=== PATIENT | male | born 1995 | race African-American/Black ===

== ENCOUNTER 2018-12-04 23:45 | Emergency (ER) | payer OTHER ==
--- NOTE | 2018-12-05 00:57 | ED ---
HPI Febrile Illness - HPI Summary HPI Summary: 23 yo male presents with flu like illness. He tells me that last night he developed feeling feverish, headache, body aches, and fatigue. He took ibuprofen and felt better. Symptoms persisted into today. He took ibuprofen with slight relief, but has felt tired all day and wants to sleep. He is eating and drinking well. Denies sinus symptoms, sore throat, cough, SOB, chest pain, abdominal pain, n/v, dysuria. - History of Current Complaint Chief Complaint: EDGeneral Time Seen by Provider: 12/05/18 00:56 Hx Obtained From: Patient Initial Severity: Mild Current Severity: Mild Pain Intensity: 4 Pain Scale Used: 0-10 Numeric - Allergy/Home Medications Allergies/Adverse Reactions: Allergies Allergy/AdvReac Type Severity Reaction Status Date / Time No Known Allergies Allergy Verified 12/04/18 23:50 PMH/Surg Hx/FS Hx/Imm Hx Endocrine/Hematology History: Denies: Hx Diabetes Cardiovascular History: Denies: Hx Hypotension, Hx Hypertension Respiratory History: Denies: Hx Asthma, Hx Chronic Obstructive Pulmonary Disease (COPD) Neurological History: Denies: Hx CVA - Surgical History Surgical History: None - Immunization History Immunizations Up to Date: Yes Infectious Disease History: No Infectious Disease History: Denies: Traveled Outside the [place] in Last 30 Days - Family History Known Family History: Positive: Non-Contributory - Social History Occupation: Student Lives: Dormitory/Roommates Alcohol Use: Occasionally Substance Use Type: Reports: None Smoking Status (MU): Never Smoked Tobacco Review of Systems Positive: Fever, Fatigue, Other - Body aches Eyes: Negative ENT: Negative Cardiovascular: Negative Respiratory: Negative Gastrointestinal: Negative Neurological: Negative Psychological: Normal All Other Systems Reviewed And Are Negative: No Physical Exam - Summary Physical Exam Summary: GENERAL: NAD. WDWN. No pain distress. SKIN: No rashes, sores, lesions, or open wounds. HEENT: Head: AT/NC Eyes: EOM intact. Conjunctiva clear without inflammation or discharge. Ears: Hearing grossly normal. TMs intact, no bulging, erythema, or edema. Nose: Nasal mucosa pink and moist. NTTP maxillary and frontal sinus. Throat: Posterior oropharynx without exudates, erythema, or tonsillar enlargement. Uvula midline. NECK: Supple. Nontender. No lymphadenopathy. CHEST: CTAB. No accessory muscle use. Breathing comfortably and in no distress. CV: RRR. Pulses intact. Cap refill <2seconds ABD: NTTP. Bowel sounds present NEURO: Alert. PSYCH: Age appropriate behavior. Triage Information Reviewed: Yes Vital Signs On Initial Exam: Initial Vitals Temp Pulse Resp BP Pulse Ox 100.6 F 98 15 133/81 97 12/04/18 23:47 12/04/18 23:47 12/04/18 23:47 12/04/18 23:47 12/04/18 23:47 Vital Signs Reviewed: Yes Procedures - Sedation Patient Received Moderate/Deep Sedation with Procedure: No Diagnostics - Vital Signs Vital Signs Temp Pulse Resp BP Pulse Ox 12/04/18 23:47 100.6 F 98 15 133/81 97 - Laboratory Lab Results: Laboratory Tests 12/05/18 12/05/18 12/05/18 01:05 01:05 01:06 WBC 8.6 RBC 4.55 Hgb 14.0 Hct 41 L MCV 90 MCH 31 MCHC 34 RDW 13 Plt Count 166 MPV 9.5 Neut % (Auto) 78.4 Lymph % (Auto) 6.6 [place] % (Auto) 14.6 Eos % (Auto) 0.1 Baso % (Auto) 0.3 Absolute Neuts (auto) 6.8 Absolute Lymphs (auto) 0.6 L Absolute Monos (auto) 1.3 H Absolute Eos (auto) 0.0 Absolute Basos (auto) 0.0 Absolute Nucleated RBC 0.0 Nucleated RBC % 0.1 Sodium 135 Potassium 3.7 Chloride 102 Carbon Dioxide 26 Anion Gap 7 BUN 9 Creatinine 1.16 Est GFR ( Amer) 96.2 Est GFR (Non-Af Amer) 79.5 BUN/Creatinine Ratio 7.8 L Glucose 99 Lactic Acid 0.8 Calcium 9.3 Total Bilirubin 1.90 H AST 19 ALT 20 Alkaline Phosphatase 110 H C-Reactive Protein 63.51 H Total Protein 7.2 Albumin 4.3 Globulin 2.9 Albumin/Globulin Ratio 1.5 Monoscreen Negative Influenza A (Rapid) Influenza B (Rapid) Group A Strep Rapid 12/05/18 12/05/18 01:35 01:35 WBC RBC Hgb Hct MCV MCH MCHC RDW Plt Count MPV Neut % (Auto) Lymph % (Auto) [place] % (Auto) Eos % (Auto) Baso % (Auto) Absolute Neuts (auto) Absolute Lymphs (auto) Absolute Monos (auto) Absolute Eos (auto) Absolute Basos (auto) Absolute Nucleated RBC Nucleated RBC % Sodium Potassium Chloride Carbon Dioxide Anion Gap BUN Creatinine Est GFR ( Amer) Est GFR (Non-Af Amer) BUN/Creatinine Ratio Glucose Lactic Acid Calcium Total Bilirubin AST ALT Alkaline Phosphatase C-Reactive Protein Total Protein Albumin Globulin Albumin/Globulin Ratio Monoscreen Influenza A (Rapid) Negative Influenza B (Rapid) Negative Group A Strep Rapid Negative Result Diagrams: 12/05/18 01:05 12/05/18 01:05 Lab Statement: Any lab studies that have been ordered have been reviewed, and results considered in the medical decision making process. Course/Dx - Course Course Of Treatment: Influenza and strep negative. No leukocytosis. Elevated CRP. [place] negative. CXR wet read negative. Suspect viral illness. Advised to rest and continue with tylenol/ibuprofen for fever and discomfort. F/u with [facility] if symtpoms do not improve - Diagnoses Provider Diagnoses: Viral syndrome Discharge ED - Sign-Out/Discharge Documenting (check all that apply): Patient Departure - Discharge Plan Condition: Stable Disposition: HOME Patient Education Materials: Viral Syndrome (ED) Forms: *School Release Referrals: No Primary Care Phys,NOPCP [Primary Care Provider] - [facility] [Provider Group] - 2 Days Additional Instructions: If you develop a fever, shortness of breath, chest pain, new or worsening symptoms - please call your PCP or go to the ED immediately. Your strep, flu, labwork, and chest x-ray were normal today Your symptoms are likely from a viral infection. Viral infections do not respond to antibiotics and are limited to the treatment of symptoms. Viral infections typically run their course in 7-10 days. Drink plenty of fluids to avoid dehydration especially if you are running any fever. Use salt water gargles several times a day. Take over the counter acetaminophen (Tylenol) or ibuprofen (Advil, Motrin) according to directions as needed for pain or fever. You may also use Chloraseptic spray or Cepacol lonzenges according to directions which contain a numbing medication and can provide some temporary relief from your sore throat. Return here or follow up with your primary care provider in 7 days if symptoms persist. - Billing Disposition and Condition Condition: STABLE Disposition: Home
[2018-12-05 01:12] LABS: ABS Lymphocytes 0.6 10^3/ul (1.0-4.8); ABS Monocytes 1.3 10^3/ul (0-0.8); ABS Neutrophils 6.8 10^3/ul (1.5-7.7); Eosinophil % 0.1 %; Hematocrit 41 % (42-52); Lymphocyte % 6.6 %; Mean Corpuscular HGB Conc 34 g/dL (31-36); Mean Corpuscular Hemoglobin 31 pg (27-31); Mean Corpuscular Volume 90 fL (80-94); Mean Platelet Volume 9.5 fL (7.4-10.4); Nucleated Red Blood Cells % 0.1; Platelet Count 166 10^3/uL (150-450); Red Blood Count 4.55 10^6 /uL (4.18-5.48); Red Cell Distribution Width 13 % (10-15); White Blood Count 8.6 10^3/uL (3.5-10.8)
[2018-12-05 01:28] LABS: Albumin 4.3 g/dL (3.2-5.2); Albumin/Globulin Ratio 1.5 (1-3); BUN/Creatinine Ratio 7.8 (8-20); C Reactive Protein 63.51 mg/L (<8.01); Calcium 9.3 mg/dL (8.6-10.3); EGFR African American 96.2 (>60); EGFR Non-African American 79.5 (>60); Globulin 2.9 g/dL (2-4); Potassium 3.7 mmol/L (3.5-5.0); Total Bilirubin 1.9 mg/dL (0.2-1.0); Total Protein 7.2 g/dL (6.4-8.9)
[2018-12-05 01:57] LABS: Rapid Strep Molecular Negative (Negative)
[2018-12-05 02:03] LABS: Influenza A Molecular NEGATIVE (Negative); Influenza B Molecular NEGATIVE (Negative)
[2018-12-05] MEDS ORDERED: Ibuprofen TAB* 600 MG PO ONE (02:06)
[2018-12-05 03:15] VITALS: BP 123/65
== END 2018-12-05 02:55 | disposition home or self-care (01) ==
LOC: ED 23:45
DX: B34.9 Viral infection, unspecified (principal)
CPT/HCPCS: 36415; 71046; 80053; 83605; 85025; 86140; 86308; 87651; 99282; A9270-GY

== ENCOUNTER 2019-04-11 00:50 | Emergency (ER) | payer OTHER ==
[2019-04-11 01:29] LABS: Rapid Strep Molecular Negative (Negative)
[2019-04-11 01:35] LABS: Influenza A Molecular Negative (Negative); Influenza B Molecular Negative (Negative)
--- NOTE | 2019-04-11 01:41 | ED ---
Influenza-Like Illness - HPI Summary HPI Summary: 23 year old M presenting to [facility] with a chief complaint of a sore throat, sharp right ear pain, intermittent abdominal pain, and his body feeling "weird" since 1-2 days ago, worse since yesterday. The patient rates the pain 8/10 in severity. Patient denies any fever or diarrhea. Symptoms aggravated by nothing. Symptoms alleviated by nothing. He reports taking Dayquil and ibuprofen for his symptoms. He last took ibuprofen around 13:00 and last took Dayquil around 15: 00. Medication list reviewed. Allergy list reviewed. - History of Current Complaint Chief Complaint: EDFluSymptoms Time Seen by Provider: 04/11/19 01:23 Hx Obtained From: Patient Onset/Duration: Lasting Days, Still Present Severity: Moderate Associated Signs & Symptoms: Negative - Diarrhea; fever, Sore Throat - Allergy/Home Medications Allergies/Adverse Reactions: Allergies Allergy/AdvReac Type Severity Reaction Status Date / Time No Known Allergies Allergy Verified 04/11/19 01:04 Home Medications: Home Medications NK [No Home Medications Reported] 04/11/19 [History Confirmed 04/11/19] PMH/Surg Hx/FS Hx/Imm Hx Endocrine/Hematology History: Denies: Hx Diabetes Cardiovascular History: Denies: Hx Hypotension, Hx Hypertension Respiratory History: Denies: Hx Asthma, Hx Chronic Obstructive Pulmonary Disease (COPD) Neurological History: Denies: Hx CVA - Surgical History Surgical History: Yes Surgery Procedure, Year, and Place: Bladder, wrist - Immunization History Date of Influenza Vaccine: did not receive Infectious Disease History: No Infectious Disease History: Reports: Traveled Outside the [place] in Last 30 Days - [facility] - Family History Known Family History: Positive: Cardiac Disease - Social History Alcohol Use: Rare Hx Substance Use: No Substance Use Type: Reports: None Hx Tobacco Use: No Smoking Status (MU): Never Smoked Tobacco - Additional Comments History Additional Comments: no pertinent past medical history Review of Systems - ROS Summary Review of Systems Summary: Home Medications Medication Instructions Recorded Confirmed Type NK [No Home Medications Reported] 04/11/19 04/11/19 History Constitutional: Other - "Body feels weird" Negative: Fever Positive: Sore Throat, Ear Ache Positive: Abdominal Pain. Negative: Diarrhea All Other Systems Reviewed And Are Negative: Yes Physical Exam - Summary Physical Exam Summary: General: Well-developed, Well-nourished male. Appears to be in mild discomfort. HEENT: Normocephalic, Atraumatic. Eyes: Conjuctiva normal, PERRL. Oropharynx: Barely erythematous. Neck: Soft, FROM, (-) lymphadenopathy, (-) thyromegaly, (-) JVD. Cardiovascular: Normal sinus rhythm, (-) murmur. Lungs: Clear to auscultation bilaterally (-) wheezes, (-) rales, (-) rhonchi. Abdomen: Soft, non-tender, non-distended, (-) organomegaly, normal bowel sounds. Back: (-) CVA tenderness Extremities: No edema. Skin: Warm, dry, (-) rash. Neuro: Alert and oriented x3, moves all extremities equally. No ataxia. No gait disturbance. No sensory deficit. Normal strength, normal sensation. Psychiatric: Mood normal, affect normal. Triage Information Reviewed: Yes Vital Signs On Initial Exam: Initial Vitals Temp Pulse Resp BP Pulse Ox 98.9 F 60 18 146/78 100 04/11/19 00:53 04/11/19 00:53 04/11/19 00:53 04/11/19 00:53 04/11/19 00:53 Vital Signs Reviewed: Yes Procedures - Sedation Patient Received Moderate/Deep Sedation with Procedure: No Diagnostics - Vital Signs Vital Signs Temp Pulse Resp BP Pulse Ox 04/11/19 01:08 59 130/74 99 04/11/19 01:06 61 98 04/11/19 00:53 98.9 F 60 18 146/78 100 - Laboratory Lab Results: Lab Results 04/11/19 04/11/19 Range/Units 01:15 01:15 Influenza A (Rapid) Negative (Negative) Influenza B (Rapid) Negative (Negative) Group A Strep Rapid Negative (Negative) Lab Statement: Any lab studies that have been ordered have been reviewed, and results considered in the medical decision making process. Re-Evaluation - Re-Evaluation First Eval Re-Evaluation Time: 03:20 Comment: I have discussed results with the patient. Discussed symptoms that warrant immediate return to ED. Flu Symptom Course/Dx - Course Course Of Treatment: 23-year-old male presents with acute illness. Patient states for the last 3 days he has had throat pain. Right ear and neck pain. Body aches. Low-grade fevers. Patient states he's been taking over-the- counter cold preparations without relief. Denies any significant cough or shortness of breath. Has mild abdominal discomfort. No nausea vomiting or diarrhea. No difficulty urinating. Hasn't been eating much has been drinking okay. On physical exam he appears in mild discomfort. Oropharynx is mildly erythematous. Neck is without lymphadenopathy. Lungs are clear to auscultation. He isn't given Toradol IM. Influenza and strep tests are negative. Patient discharged home. Advised plenty of fluids and rest. Tylenol or ibuprofen as needed. Patient given a note to return to school on Tuesday. [place] PCP. Follow-up sooner for any worsening symptoms. The patient was given Toradol in the ED. - Diagnoses Provider Diagnoses: Viral syndrome Discharge ED - Sign-Out/Discharge Documenting (check all that apply): Patient Departure - discharge - Discharge Plan Condition: Stable Disposition: HOME Patient Education Materials: Viral Syndrome (ED) Forms: *School Release Referrals: [facility] [Outside] - 3 Days Additional Instructions: Please follow up with your primary care physician within three days. Please return to ED for any new or worsening symptoms. - Billing Disposition and Condition Condition: STABLE Disposition: Home - Attestation Statements Document Initiated by Scribe: Yes Documenting Scribe: Bessie Yeager Provider For Whom Trevor is Documenting (Include Credential): Mahsa Ferrara MD Scribe Attestation: Nanci Guzman Natalie George, scribed for Mahsa Ferrara MD on 04/11/19 at 0454. Scribe Documentation Reviewed: Yes Provider Attestation: The documentation as recorded by the scribjose martin, Bessie Yeager accurately reflects the service I personally performed and the decisions made by me, Mahsa Ferrara MD Status of Scribe Document: Viewed
[2019-04-11] MEDS ORDERED: Ketorolac INJ* 30 MG/ML 1 ML VIAL IM ONE (02:08)
[2019-04-11 03:42] VITALS: BP 128/62
== END 2019-04-11 03:30 | disposition home or self-care (01) ==
LOC: ED 00:50
DX: B34.9 Viral infection, unspecified (principal); J02.9 Acute pharyngitis, unspecified; R10.9 Unspecified abdominal pain; H92.09 Otalgia, unspecified ear
CPT/HCPCS: 87651; 99283; J1885

== ENCOUNTER 2019-04-22 22:49 | Emergency (ER) | payer OTHER ==
[2019-04-22] MEDS ORDERED: Lorazepam PYXIS KEY PRN (23:00)
[2019-04-22] MEDS ORDERED: LORazepam INJ* 2 MG/ML 1 ML VIAL IV PUSH ONE (23:00)
[2019-04-22] MEDS ORDERED: Lorazepam PYXIS KEY ONE (23:03)
[2019-04-22] MEDS: NS 0.9% 1000 ML** 2,000 ML IV ONE ×2 (23:09→23:10)
[2019-04-22] MEDS ORDERED: Midazolam concentrated* 5 MG/ML 1 ml VIAL ONE (23:19)
[2019-04-22] MEDS ORDERED: Midazolam* 1 MG/ML 2 ML VIAL (2 MG) IV SLOW PU ONE (23:20)
[2019-04-22] MEDS ORDERED: Midazolam concentrated* 5 MG/ML 1 ml VIAL INJ ONE (23:20)
--- NOTE | 2019-04-22 23:23 | ED ---
Substance Abuse/Use - HPI Summary HPI Summary: Patient is a 23 y/o M presenting [facility] tachycardic and tachypneic. Patient is significantly anxious as well. It is reported that the patient had used marijuana before coming to the ED. Minimal history is able to be obtained, level 5 caveat secondary to AMS. Home medications and allergies are reviewed. - History Of Current Complaint Chief Complaint: EDSubstanceAbuse Stated Complaint: DIFFICULTY BREATHING PER FRIEND Time Seen by Provider: 04/22/19 22:55 Hx Obtained From: Patient, EMS Hx From Patient Unobtainable Due To: Altered Mental Status - Minimal history is able to be obtained, level 5 caveat secondary to AMS. Ingestion History: Type/Name Of Drug Overdose Characteristics: Inhalation - marijuana Character: Anxious Associated Signs And Symptoms: Other: - tachypnea, tachycardia - Allergies/Home Medications Allergies/Adverse Reactions: Allergies Allergy/AdvReac Type Severity Reaction Status Date / Time No Known Allergies Allergy Verified 04/22/19 22:57 Home Medications: Home Medications NK [No Home Medications Reported] 04/11/19 [History Confirmed 04/11/19] PMH/Surg Hx/FS Hx/Imm Hx Endocrine/Hematology History: Denies: Hx Diabetes Cardiovascular History: Denies: Hx Hypotension, Hx Hypertension Respiratory History: Denies: Hx Asthma, Hx Chronic Obstructive Pulmonary Disease (COPD) Neurological History: Denies: Hx CVA - Surgical History Surgery Procedure, Year, and Place: Bladder, wrist - Immunization History Date of Influenza Vaccine: did not receive Infectious Disease History: No Infectious Disease History: Denies: Traveled Outside the [place] in Last 30 Days - Family History Known Family History: Positive: Cardiac Disease - Social History Alcohol Use: Rare Hx Substance Use: No Substance Use Type: Reports: None Hx Tobacco Use: No Smoking Status (MU): Never Smoked Tobacco Review of Systems - ROS Summary Review of Systems Summary: Minimal history is able to be obtained, level 5 caveat secondary to AMS. Positive: Other - Tachycardia Positive: Other - Tachypnea Positive: Anxious All Other Systems Reviewed And Are Negative: No - Comments Additional Review of Systems Comments: Minimal history is able to be obtained, level 5 caveat secondary to AMS. Physical Exam - Summary Physical Exam Summary: General: Well-developed, Well-nourished male. No acute distress. HEENT: Normocephalic, Atraumatic. Eyes: Conjuctiva normal, PERRL. Oropharynx: Clear, mucous membranes moist, (-) exudates. Neck: Soft, FROM, (-) lymphadenopathy, (-) thyromegaly, (-) JVD. Cardiovascular: Normal sinus rhythm, (-) murmur. Lungs: Clear to auscultation bilaterally (-) wheezes, (-) rales, (-) rhonchi. Abdomen: Soft, non-tender, non-distended, (-) organomegaly, normal bowel sounds. Back: (-) CVA tenderness Extremities: No edema. Skin: Warm, dry, (-) rash. Neuro: Alert and oriented x3, moves all extremities equally. Unable to full assess, level 5 caveat secondary to AMS. Psychiatric: Significantly anxious appearing, agitated Triage Information Reviewed: Yes Vital Signs On Initial Exam: Initial Vitals Temp Pulse Resp BP Pulse Ox 97.6 F 133 29 130/106 100 04/22/19 22:54 04/22/19 22:54 04/22/19 22:54 04/22/19 22:54 04/22/19 22:54 Vital Signs Reviewed: Yes Completion Of Physical Exam Limited Due To: Altered Mental Status, Level 5 Procedures - Sedation Patient Received Moderate/Deep Sedation with Procedure: No Diagnostics - Vital Signs Vital Signs Temp Pulse Resp BP Pulse Ox 04/22/19 23:09 45 04/22/19 22:54 97.6 F 133 29 130/106 100 - Laboratory Result Diagrams: 04/23/19 00:07 04/23/19 00:07 Lab Statement: Any lab studies that have been ordered have been reviewed, and results considered in the medical decision making process. Re-Evaluation - Re-Evaluation First Eval Re-Evaluation Time: 06:10 Change: Improved Comment: Patient is alert and oriented x3 at this time. His mentation is at baseline, no longer tachycardic, tachypneic, or anxious. Patient to be discharged to home. Course/Dx - Course Course Of Treatment: During ED course, patient received fluids, Ativan 2 mg IV, and Versed 5 mg INJ. - Diagnoses Provider Diagnoses: Cannabis abuse Discharge ED - Sign-Out/Discharge Documenting (check all that apply): Patient Departure - discharge - Discharge Plan Condition: Stable Disposition: HOME Patient Education Materials: Cannabis Abuse (ED) Referrals: [facility] [Outside] - 3 Days Additional Instructions: PLEASE RETURN TO ED FOR ANY NEW OR WORSENING SYMPTOMS. PLEASE FOLLOW-UP WITH YOUR PRIMARY CARE PHYSICIAN WITHIN THREE DAYS. - Attestation Statements Document Initiated by Scribe: Yes Documenting Scribe: SAMANTHA PEMBERTON Provider For Whom Scribe is Documenting (Include Credential): HECTOR VILLALOBOS MD Scribe Attestation: I, SAMANTHA PEMBERTON, scribed for HECTOR VILLALOBOS MD on 04/23/19 at 0642. Status of Scribe Document: Ready
[2019-04-22] MEDS ORDERED: Flumazenil* 0.1 MG/ML 5 ML MDV ONE (23:40)
[2019-04-23 00:14] LABS: ABS Eosinophils 0.1 10^3/ul (0-0.6); ABS Lymphocytes 1.1 10^3/ul (1.0-4.8); ABS Monocytes 0.4 10^3/ul (0-0.8); ABS Neutrophils 2.8 10^3/ul (1.5-7.7); Eosinophil % 1.8 %; Hematocrit 35 % (42-52); Hemoglobin 11.8 g/dL (14.0-18.0); Lymphocyte % 24.8 %; Mean Corpuscular HGB Conc 34 g/dL (31-36); Mean Corpuscular Hemoglobin 30 pg (27-31); Mean Corpuscular Volume 89 fL (80-94); Mean Platelet Volume 8.7 fL (7.4-10.4); Nucleated Red Blood Cells % 0.1; Platelet Count 257 10^3/uL (150-450); Red Blood Count 3.87 10^6 /uL (4.18-5.48); Red Cell Distribution Width 13 % (10-15); White Blood Count 4.4 10^3/uL (3.5-10.8)
[2019-04-23 00:33] LABS: ALT 26 U/L (7-52); AST 21 U/L (13-39); Albumin 3.8 g/dL (3.2-5.2); Albumin/Globulin Ratio 1.4 (1-3); Alkaline Phosphatase 118 U/L (34-104); Anion Gap 7 mmol/L (2-11); Blood Urea Nitrogen 13 mg/dL (6-24); CO2 Carbon Dioxide 26 mmol/L (22-32); Calcium 8.7 mg/dL (8.6-10.3); Chloride 107 mmol/L (101-111); EGFR African American 94.3 (>60); EGFR Non-African American 77.9 (>60); Globulin 2.7 g/dL (2-4); Glucose 105 mg/dL (70-100); Potassium 3.2 mmol/L (3.5-5.0); Sodium 140 mmol/L (135-145); Total Protein 6.5 g/dL (6.4-8.9)
[2019-04-23 00:39] LABS: Acetaminophen < 15 mcg/mL; Alcohol < 10 mg/dL (<10); Salicylate < 2.50 mg/dL (<30)
[2019-04-23 00:53] LABS: TSH (Thyroid Stimulating Horm) 1.62 mcIU/mL (0.34-5.60)
[2019-04-23 06:25] VITALS: BP 120/66
== END 2019-04-23 06:24 | disposition home or self-care (01) ==
LOC: ED 22:49
DX: F12.10 Cannabis abuse, uncomplicated (principal); R41.82 Altered mental status, unspecified; R00.0 Tachycardia, unspecified; F41.9 Anxiety disorder, unspecified
CPT/HCPCS: 36415; 80053; 80320; 80329; 83605; 84443; 85025; 96361; 96374; 96375; 99283; G0480; J2060; J2250

== ENCOUNTER 2019-04-23 10:31 | Emergency (ER) | payer OTHER ==
--- NOTE | 2019-04-23 11:01 | ED ---
Nausea/Vomiting/Diarrhea HPI - HPI Summary HPI Summary: 23-year-old male presents to the emergency department today with chief complaint of "my breathing doesn't feel right". This patient was recently discharged from emergency department hours ago with a diagnosis of cannabis abuse disorder. Patient was recently given Ativan and Versed for anxiety and tachypnea due to anxiety. Patient is comfortable at this time and has no other complaints. His vitals are stable and he has no cough, fever, chest pain, abdominal pain, headache, nausea, vomiting, diarrhea, rash. Patient denies recent travel or exposure to known coronavirus or person under investigation for chronic virus. - History of Current Complaint Chief Complaint: EDGeneral Stated Complaint: GENERAL PER PT Time Seen by Provider: 04/23/19 10:39 Hx Obtained From: Patient Onset/Duration: Gradual Onset Timing: Constant Severity Initially: Mild Severity Currently: Mild Pain Intensity: 0 Pain Scale Used: 0-10 Numeric - Allergies/Home Medications Allergies/Adverse Reactions: Allergies Allergy/AdvReac Type Severity Reaction Status Date / Time No Known Allergies Allergy Verified 04/23/19 10:37 Home Medications: Home Medications NK [No Home Medications Reported] 04/11/19 [History Confirmed 04/23/19] PMH/Surg Hx/FS Hx/Imm Hx Endocrine/Hematology History: Denies: Hx Diabetes Cardiovascular History: Denies: Hx Hypotension, Hx Hypertension Respiratory History: Denies: Hx Asthma, Hx Chronic Obstructive Pulmonary Disease (COPD) Neurological History: Denies: Hx CVA - Surgical History Surgery Procedure, Year, and Place: Bladder, wrist - Immunization History Date of Influenza Vaccine: did not receive Infectious Disease History: No Infectious Disease History: Denies: Traveled Outside the [place] in Last 30 Days - Family History Known Family History: Positive: Cardiac Disease - Social History Alcohol Use: Rare Hx Substance Use: No Substance Use Type: Reports: None Substance Use Comment - Amount & Last Used: unable to confirm Hx Tobacco Use: No Smoking Status (MU): Never Smoked Tobacco Review of Systems Constitutional: Negative Eyes: Negative ENT: Negative Cardiovascular: Negative Positive: Shortness Of Breath. Negative: Cough Gastrointestinal: Negative Genitourinary: Negative Musculoskeletal: Negative Skin: Negative Neurological/Mental Status: Negative Positive: Anxious All Other Systems Reviewed And Are Negative: Yes Physical Exam Triage Information Reviewed: Yes Vital Signs On Initial Exam: Initial Vitals Temp Pulse Resp BP Pulse Ox 98.7 F 64 18 134/47 100 04/23/19 10:33 04/23/19 10:33 04/23/19 10:33 04/23/19 10:33 04/23/19 10:33 Vital Signs Reviewed: Yes Appearance: Positive: Well-Appearing, No Pain Distress, Well-Nourished Skin: Positive: Warm, Skin Color Reflects Adequate Perfusion Eyes: Positive: EOMI, SONIA ENT: Positive: Hearing grossly normal Respiratory/Lung Sounds: Positive: Clear to Auscultation, Breath Sounds Present. Negative: Stridor, Wheezes, Unable to speak in full sentences, Fatigue Cardiovascular: Positive: RRR, S1, S2 Abdomen Description: Positive: Nontender, Soft Bowel Sounds: Positive: Present Musculoskeletal: Positive: Strength/ROM Intact Neurological: Positive: Sensory/Motor Intact, Alert, Oriented to Person Place, Time, Normal Gait, Facial Symmetry, Speech Normal Psychiatric: Positive: Normal, Affect/Mood Appropriate AVPU Assessment: Alert Procedures - Sedation Patient Received Moderate/Deep Sedation with Procedure: No Diagnostics - Vital Signs Vital Signs Temp Pulse Resp BP Pulse Ox 04/23/19 10:33 98.7 F 64 18 134/47 100 - Laboratory Lab Statement: Any lab studies that have been ordered have been reviewed, and results considered in the medical decision making process. Naus/Vom/Diarrhea Course/Dx - Course Course Of Treatment: Patient was evaluated in the emergency department today for "my breathing doesn't feel right". Vitals noted and stable. Patient is afebrile with no hypoxia. Patient was in no distress. Auscultation of lungs showed no abnormalities and the patient appeared to have no pathology on chest xray. Pt discharged with outpatient follow up. - Differential Dx/Diagnosis Differential Diagnoses - Male: Adverse Drug Effect Provider Diagnosis: Anxiety Condition At Discharge: Stable Discharge ED - Sign-Out/Discharge Documenting (check all that apply): Patient Departure - Discharge Plan Condition: Stable Disposition: HOME Patient Education Materials: Shortness of Breath (ED) Referrals: No Primary Care Phys,NOPCP [Primary Care Provider] - [facility] [Outside] - 3 Days Additional Instructions: You were seen in the emergency department today for shortness of breath. There appears to be no medical pathology requiring intervention at this time and her vitals are stable. Your chest x-ray done hours ago showed no active disease. [facility] with [facility] in 3-5 days for further evaluation and management if needed. Please return to this emergency Department immediately if you develop any new or worsening symptoms. - Billing Disposition and Condition Condition: STABLE Disposition: Home
[2019-04-23 11:56] VITALS: BP 131/70
== END 2019-04-23 11:53 | disposition home or self-care (01) ==
LOC: ED 10:31
DX: F41.9 Anxiety disorder, unspecified (principal); R06.02 Shortness of breath; F12.10 Cannabis abuse, uncomplicated
CPT/HCPCS: 71046; 99282

== ENCOUNTER 2019-04-26 07:56 | Emergency (ER) | payer OTHER ==
--- NOTE | 2019-04-26 08:25 | ED ---
Shortness of Breath - HPI Summary HPI Summary: 23 year old male presents with shortness of breath for the past couple days. He states that it started after he smoked marijuana many days ago. States it wakes him up at night. He admits to chest tightness and palpitations. He has been seen here multiple times for this. Was seen in urgent care yesterday and prescribed hydroxyzine. He states it is not been helping. He traveled to [facility] in early Mar. No pain or swelling in his calf muscles. No family history of blood clots. Does have history asthma. Has been using his inhaler without any relief. No wheezing. No cough. No sore throat. No fevers. Not exposed to anyone sick. - History of Current Complaint Chief Complaint: EDShortnessOfBreath Time Seen by Provider: 04/26/19 07:59 - Allergy/Home Medications Allergies/Adverse Reactions: Allergies Allergy/AdvReac Type Severity Reaction Status Date / Time No Known Allergies Allergy Verified 04/23/19 10:37 Home Medications: Home Medications Albuterol HFA INHALER* [Ventolin HFA Inhaler*] 2 puff INH Q6H PRN 04/26/19 [ History Confirmed 04/26/19] hydrOXYzine HCL TAB* [Atarax 10 MG TAB*] 1 - 3 tab PO TID PRN 04/26/19 [History Confirmed 04/26/19] PMH/Surg Hx/FS Hx/Imm Hx Endocrine/Hematology History: Denies: Hx Diabetes Cardiovascular History: Denies: Hx Hypotension, Hx Hypertension Respiratory History: Denies: Hx Asthma, Hx Chronic Obstructive Pulmonary Disease (COPD) Neurological History: Denies: Hx CVA - Surgical History Surgery Procedure, Year, and Place: Bladder, wrist - Immunization History Date of Influenza Vaccine: did not receive Infectious Disease History: No Infectious Disease History: Reports: Traveled Outside the [place] in Last 30 Days - Family History Known Family History: Positive: Cardiac Disease - Social History Alcohol Use: Rare Hx Substance Use: No Substance Use Type: Reports: Marijuana Substance Use Comment - Amount & Last Used: unable to confirm Hx Tobacco Use: No Smoking Status (MU): Never Smoked Tobacco Review of Systems Negative: Fever Positive: Palpitations, Chest Pain Positive: Shortness Of Breath All Other Systems Reviewed And Are Negative: Yes Physical Exam Triage Information Reviewed: Yes Vital Signs On Initial Exam: Initial Vitals Temp Pulse Resp BP Pulse Ox 97.3 F 54 22 138/75 98 04/26/19 08:05 04/26/19 08:05 04/26/19 08:05 04/26/19 08:05 04/26/19 08:05 Vital Signs Reviewed: Yes Appearance: Positive: Well-Appearing Skin: Positive: Warm, Dry Head/Face: Positive: Normal Head/Face Inspection Eyes: Positive: Normal, EOMI, SONIA, Conjunctiva Clear ENT: Positive: Normal ENT inspection, Pharynx normal, TMs normal Respiratory/Lung Sounds: Positive: Clear to Auscultation, Breath Sounds Present Cardiovascular: Positive: Normal, RRR Abdomen Description: Positive: Nontender, Soft Bowel Sounds: Positive: Present Musculoskeletal: Positive: Normal Neurological: Positive: Normal Psychiatric: Positive: Anxious Procedures - Sedation Patient Received Moderate/Deep Sedation with Procedure: No Diagnostics - Vital Signs Vital Signs Temp Pulse Resp BP Pulse Ox 04/26/19 08:05 97.3 F 54 22 138/75 98 - Laboratory Result Diagrams: 04/26/19 08:31 04/26/19 08:31 Lab Statement: Any lab studies that have been ordered have been reviewed, and results considered in the medical decision making process. - EKG No standard instances Cardiac Rate: Bradycardia EKG Rhythm: Sinus Bradycardia Summary of EKG Findings: sinus bradycardia Course/Dx - Course Course Of Treatment: 23 year old male presents with shortness of breath for the past couple days. He states that it started after he smoked marijuana many days ago. States it wakes him up at night. He admits to chest tightness and palpitations. He has been seen here multiple times for this. Was seen in urgent care yesterday and prescribed hydroxyzine. He states it is not been helping. He traveled to [facility] in early Mar. No pain or swelling in his calf muscles. No family history of blood clots. Does have history asthma. Has been using his inhaler without any relief. No wheezing. No cough. No sore throat. No fevers. Not exposed to anyone sick. On exam lungs CTA. Patient appears anxious. Vitals are normal. EKG this shows sinus bradycardia. Had chest x-ray couple days ago that was negative. wbc normal. d-dimer neg. troponin .01. discussed likely anxiety. told continue hydroxyzine. told est care with primary for follow up. patient understand and agrees with plan. - Diagnoses Differential Diagnosis/HQI/PQRI: Positive: Asthma, Pneumothorax, Pulmonary Embolism Provider Diagnoses: Shortness of breath Discharge ED - Sign-Out/Discharge Documenting (check all that apply): Patient Departure - Discharge Plan Condition: Good Disposition: HOME Patient Education Materials: Anxiety (ED) Referrals: [facility] [Outside] Additional Instructions: continue hydroxyzine as prescribed Establish care with primary to follow up Return to ED if develop any new or worsening symptoms - Billing Disposition and Condition Condition: GOOD Disposition: Home - Attestation Statements Provider Attestation: I was available for consultation for this patient. I did not evaluate the patient or participate in any medical decision making or disposition decisions unless I am specifically named in the chart as having consulted on the patient. If I have consulted on the patient, please see my own ED note on the patient encounter. Aly Singh MD
[2019-04-26 08:39] LABS: ABS Eosinophils 0.1 10^3/ul (0-0.6); ABS Lymphocytes 1.8 10^3/ul (1.0-4.8); ABS Monocytes 0.3 10^3/ul (0-0.8); ABS Neutrophils 1.7 10^3/ul (1.5-7.7); Eosinophil % 3.3 %; Hematocrit 39 % (42-52); Hemoglobin 13.1 g/dL (14.0-18.0); Lymphocyte % 44.7 %; Mean Corpuscular HGB Conc 34 g/dL (31-36); Mean Corpuscular Hemoglobin 30 pg (27-31); Mean Corpuscular Volume 89 fL (80-94); Mean Platelet Volume 9.6 fL (7.4-10.4); Nucleated Red Blood Cells % 0.1; Platelet Count 245 10^3/uL (150-450); Red Blood Count 4.37 10^6 /uL (4.18-5.48); Red Cell Distribution Width 14 % (10-15); White Blood Count 3.9 10^3/uL (3.5-10.8)
[2019-04-26 08:59] LABS: Albumin 4.1 g/dL (3.2-5.2); Albumin/Globulin Ratio 1.6 (1-3); BUN/Creatinine Ratio 12.6 (8-20); Calcium 9.2 mg/dL (8.6-10.3); EGFR African American 121.1 (>60); EGFR Non-African American 100.1 (>60); Globulin 2.6 g/dL (2-4); Total Bilirubin 0.8 mg/dL (0.2-1.0); Total Protein 6.7 g/dL (6.4-8.9)
[2019-04-26 09:03] LABS: Troponin I 0.01 ng/mL (<0.03)
[2019-04-26] MEDS ORDERED: hydrOXYzine HCL TAB* 25 MG PO ONE (09:17)
[2019-04-26 09:21] LABS: Potassium 3.7 mmol/L (3.5-5.0)
[2019-04-26 09:41] VITALS: BP 112/58
== END 2019-04-26 09:41 | disposition home or self-care (01) ==
LOC: ED 07:56
DX: R06.02 Shortness of breath (principal)
CPT/HCPCS: 36415; 80053; 84484; 85025; 85379; 93005; 99283; A9270-GY

== ENCOUNTER 2019-04-29 02:31 | Emergency (ER) | payer OTHER ==
--- NOTE | 2019-04-29 02:48 | ED ---
Shortness of Breath - HPI Summary HPI Summary: Per triage, "Pt states he's been seen in this ED three times this week for several complaints. States today he is having troubles breathing, chest discomfort, and pain to his BUE. Pt denies cardiac hx. Pt states he feels like his chest is burning. States one of his visits was d/t chest discomfort post marijuana use. 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 Alleviating Factors: Nothing - per mechanical drawing teacher Associated Signs & Symptoms: Chest Pain Unrelated to Cough - Patient experiences chest discomfort - Allergy/Home Medications Allergies/Adverse Reactions: Allergies Allergy/AdvReac Type Severity Reaction Status Date / Time No Known Allergies Allergy Verified 04/29/19 02:46 Home Medications: Home Medications Albuterol HFA INHALER* [Ventolin HFA Inhaler*] 2 puff INH Q6H PRN 04/26/19 [ History Confirmed 04/29/19] hydrOXYzine HCL TAB* [Atarax 10 MG TAB*] 1 - 3 tab PO TID PRN 04/26/19 [History Confirmed 04/29/19] PMH/Surg Hx/FS Hx/Imm Hx Endocrine/Hematology History: Denies: Hx Diabetes Cardiovascular History: Denies: Hx Hypotension, Hx Hypertension Respiratory History: Denies: Hx Asthma, Hx Chronic Obstructive Pulmonary Disease (COPD) Neurological History: Denies: Hx CVA - Surgical History Surgery Procedure, Year, and Place: Bladder, wrist - Immunization History Date of Influenza Vaccine: did not receive Infectious Disease History: No Infectious Disease History: Denies: Traveled Outside the [place] in Last 30 Days - Family History Known Family History: Positive: Cardiac Disease - Social History Alcohol Use: Rare Hx Substance Use: No Substance Use Type: Reports: Marijuana Substance Use Comment - Amount & Last Used: unable to confirm Hx Tobacco Use: No Smoking Status (MU): Never Smoked Tobacco Review of Systems Negative: Fever, Other - Patient denies flu s/s. Positive: Chest Pain - Patient states he has a burning sensation in his chest. Positive: Shortness Of Breath. Negative: Cough, Other - Patient denies postive sick contact. Positive: Other - BUE pain. All Other Systems Reviewed And Are Negative: Yes Physical Exam - Summary Physical Exam Summary: Constitutional: Well-developed, Well-nourished, Alert. (-) Distressed Skin: Warm, Dry HENT: Normocephalic; Atraumatic Eyes: Conjunctiva normal Neck: Musculoskeletal ROM normal neck. (-) JVD, (-) Stridor, (-) Tracheal deviation Cardio: Rhythm regular, rate normal, Heart sounds normal; Intact distal pulses; The pedal pulses are 2+ and symmetric. Radial pulses are 2+ and symmetric. (-) Murmur Pulmonary/Chest wall: Effort normal. (-) Respiratory distress, (-) Wheezes, (-) Rales Abd: Soft, (-) tenderness, (-) Distension, (-) Guarding, (-) Rebound Musculoskeletal: (-) Edema Lymph: (-) Cervical adenopathy Neuro: Alert, Oriented x3 Psych: Mood and affect Normal Triage Information Reviewed: Yes Vital Signs On Initial Exam: Initial Vitals Temp Pulse Resp BP Pulse Ox 97.3 F 56 16 139/88 99 04/29/19 02:39 04/29/19 02:39 04/29/19 02:39 04/29/19 02:39 04/29/19 02:39 Vital Signs Reviewed: Yes Procedures - Sedation Patient Received Moderate/Deep Sedation with Procedure: No Diagnostics - Vital Signs Vital Signs Temp Pulse Resp BP Pulse Ox 04/29/19 02:39 97.3 F 56 16 139/88 99 - Laboratory Lab Statement: Any lab studies that have been ordered have been reviewed, and results considered in the medical decision making process. - EKG 0254 Cardiac Rate: Bradycardia - rate of 52 BPM EKG Rhythm: Sinus Bradycardia Summary of EKG Findings: EKG showed sinus bradycardia with rate of 52 BPM, no ischemic changes. ED physician has reviewed and interpreted this EKG. 0023 Cardiac Rate: NL - rate of 83 BPM EKG Rhythm: Sinus Rhythm Summary of EKG Findings: EKG showed sinus rhythm with rate of 83 BPM, no ischemic changes. ED physician has reviewed and interpreted this EKG. Course/Dx - Course Course Of Treatment: Per triage, "Pt states he's been seen in this ED three times this week for several complaints. States today he is having troubles breathing, chest discomfort, and pain to his BUE. Pt denies cardiac hx. Pt states he feels like his chest is burning. States one of his visits was d/t chest discomfort post marijuana use. Pt denies flu s/s, fever, cough, and exposure to anyone that has been sick". The patient's physical exam was normal. He recieved 30 mL of Maalox Plus and 15 mL of viscous Xylocaine 2%. EKG showed sinus bradycardia with rate of 52 BPM, no ischemic changes. The patient was discharged to home with PCP followup within 3 days. - Diagnoses Provider Diagnoses: Chest pain Discharge ED - Sign-Out/Discharge Documenting (check all that apply): Patient Departure - Discharge - Discharge Plan Condition: Stable Disposition: HOME Patient Education Materials: Chest Pain (ED) Referrals: [facility] - Ryan VAZQUEZ [Primary Care Provider] - 3 Days Additional Instructions: Please return to the ED for any new or worsening symptoms. Please followup with [facility] within 3 days. - Billing Disposition and Condition Condition: STABLE Disposition: Home - Attestation Statements Document Initiated by Ghadaibe: Yes Documenting Scribe: Laura Stanley Provider For Whom Scribe is Documenting (Include Credential): Eleazar Celis DO Scribe Attestation: Laura Guzman, scribed for Eleazar Celis DO on at 0514. Scribe Documentation Reviewed: Yes Provider Attestation: The documentation as recorded by the ghadaibjose martin, Laura Stanley accurately reflects the service I personally performed and the decisions made by Eleazar mann DO Status of Scribjose martin Document: Viewed
[2019-04-29] MEDS ORDERED: Lidocaine 2% VISCOUS* 15 ML UDC PO ONE (02:52)
[2019-04-29] MEDS ORDERED: Al Hydrox/Mg Hydrox/Simet LIQ* 30 ML UDC PO ONE (02:52)
[2019-04-29 03:39] LABS: Influenza A Molecular Negative (Negative); Influenza B Molecular Negative (Negative)
[2019-04-29 03:53] VITALS: BP 130/81
== END 2019-04-29 03:56 | disposition home or self-care (01) ==
LOC: ED 02:31
DX: R07.9 Chest pain, unspecified (principal); Z79.899 Other long term (current) drug therapy; R06.02 Shortness of breath
CPT/HCPCS: 93005; 99282; A9270-GY